=== PATIENT | male | born 1935 | race Caucasian/White ===

== ENCOUNTER 2023-04-01 11:44 | Outpatient (CLI) | payer OTHER, SELFPAY ==
--- NOTE | ~2023-04-01 | XR_ITS ---
Left Hand Technique: PA, oblique, and lateral views were obtained. Clinical History: Pain Findings: No acute fracture or dislocation is seen. There is moderate degenerative change of the radi ocarpal articulations, first CMC joint, and DRUJ. There are scattered mild degenerative changes of th e interphalangeal joints throughout the hand.. Soft tissues are unremarkable. Impression: No acute fracture or dislocation. Polyarticular osteoarthritis, as detailed above. Reviewed, dictated and finalized at location M. Impression: No acute fracture or dislocation. Polyarticular osteoarthritis, as detailed above.
== END 2023-04-01 11:45 | disposition home or self-care (01) ==
LOC: ANHBWCIMG 11:53
PROVIDERS: PCP Internal Medicine; Visit Provider Internal Medicine
DX: M79.642 Pain in left hand (principal); M19.042 Primary osteoarthritis, left hand
CPT/HCPCS: 73130

== ENCOUNTER 2023-12-28 11:55 | Outpatient (CLI) | payer OTHER, SELFPAY ==
--- NOTE | ~2023-12-28 | XR_ITS ---
Clinical Indication: Shortness of breath PA and lateral views of the chest: Comparison: None Findings: Probable minimal bibasilar pulmonary edema/atelectasis. Cardiomediastinal silhouette is wi thin normal limits. Bones and soft tissues are unremarkable. Impression: Probable minimal bibasilar pulmonary edema/atelectasis. Reviewed, dictated and finalized at [facility]. Impression: Probable minimal bibasilar pulmonary edema/atelectasis.
== END 2023-12-28 11:56 | disposition home or self-care (01) ==
LOC: ANHBWCIMG 12:00
PROVIDERS: PCP Internal Medicine
DX: R06.02 Shortness of breath (principal); R05.9 Cough, unspecified
CPT/HCPCS: 71046

== ENCOUNTER 2025-06-05 12:30 | Outpatient (CLI) | payer OTHER, SELFPAY ==
--- NOTE | ~2025-06-05 | XR_ITS ---
EXAMINATION: XR chest 2V DATE: 06/05/2025 12:49 INDICATION: Cough TECHNIQUE: Frontal and lateral views of the chest were obtained. 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 Heart size within normal limits. 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 IMPRESSION: 1. Emphysematous appearing changes in the lungs with no focal acute process. Reviewed, dictated and finalized at location A. [employer]
== END 2025-06-05 12:31 | disposition home or self-care (01) ==
PROVIDERS: PCP Internal Medicine; Visit Provider Family Medicine
DX: J44.1 Chronic obstructive pulmonary disease with (acute) exacerbation (principal)
CPT/HCPCS: 71046